=== PATIENT | male | born 1995 | race African-American/Black ===

== ENCOUNTER 2017-01-04 22:22 | Emergency (ER) | payer OTHER ==
[2017-01-04 22:30] VITALS: BP 134/56; PULSE 85; TEMP 97.9; BMI 21.5
[2017-01-04] MEDS ORDERED: IBUPROFEN 600 MG TABLET (FP) PO ONE ×2 (23:19→23:37)
--- NOTE | 2017-01-04 23:29 | PDOC ---
History of Present Illness - General Chief Complaint: Pain Stated Complaint: INJURY Time Seen by Provider: 01/04/17 23:02 History Source: Patient Exam Limitations: No Limitations - History of Present Illness Initial Comments: 01/04/17 23:25 21yo Male patient with no significant past medical history presents to ED c/o left ankle/foot injury sustained while playing basketball. Patient states he rolled his ankle while attempting to grab a rebound. He states he is unable to bear weight. No OTC medication taken. Denies any other complaints. Occurred: reports: this morning Severity: Yes: moderate Lower Extremity Pain Location: left: foot, ankle Method of Injury: Yes: sports injury Modifying Factors: improves with: rest Associated Symptoms: See HPI Lower Ext. Injury Location - Specific Injury Location Ankle: right no evidence of injury, right normal inspection, right normal range of motion, right non-tender, left bone tenderness, left soft tissue tenderness, left limited range of motion, left pain, left swelling Foot: right foot no evidence of injury, right foot normal inspection, right foot normal range of motion, right foot non-tender, left foot soft tissue tenderness, left foot bone tenderness, left foot limited range of motion, left foot pain, left foot swelling Extremity Pain Location - Extremity Pain Location Extremity Pain Locations: left: foot, ankle Past History - Travel Traveled outside of the country in the last 30 days: No Close contact w/someone who was outside of country & ill: No - Past Medical History Allergies/Adverse Reactions: Allergies Allergy/AdvReac Type Severity Reaction Status Date / Time No Known Allergies Allergy Verified 01/04/17 22:27 Home Medications: Ambulatory Orders No Home Medications 0 dose .ROUTE UTDICT 02/07/13 Ibuprofen [Motrin -] 600 mg PO Q6H PRN #20 tablet 01/05/17 Other medical history: Pt denies - Psycho/Social/Smoking Cessation Hx Suicidal Ideation: No Smoking Status: No Smoking History: Never smoked Have you smoked in the past 12 months: No Number of Cigarettes Smoked Daily: 0 Information on smoking cessation initiated: No Hx Alcohol Use: No Drug/Substance Use Hx: No Substance Use Type: None Review of Systems - Review of Systems Able to Perform ROS?: Yes Is the patient limited Setswana proficient: No Musculoskeletal: Yes: Other (Foot swelling and Pain) All Other Systems: Reviewed and Negative *Physical Exam - Vital Signs Last Vital Signs Temp Pulse Resp BP Pulse Ox 97.9 F 85 20 134/56 100 01/04/17 22:27 01/04/17 22:27 01/04/17 22:27 01/04/17 22:27 01/04/17 22:27 - Physical Exam General Appearance: Yes: Nourished, Appropriately Dressed. No: Apparent Distress, Mild Distress, Moderate Distress, Severe Distress Respiratory/Chest: positive: Lungs Clear, Normal Breath Sounds. negative: Chest Tender, Respiratory Distress, Accessory Muscle Use, Labored Respiration, Rapid RR, Stridor, Wheezing Cardiovascular: positive: Regular Rhythm, Regular Rate Musculoskeletal: positive: Normal Inspection. negative: CVA Tenderness, Decreased Range of Motion, Vertebral Tenderness Extremity: positive: Normal Capillary Refill, Normal Inspection, Swelling. negative: Normal Range of Motion (Left foot), Erythema, Inflammation Integumentary: positive: Normal Color, Dry, Warm Neurologic: positive: timber feller II-XII NML intact, Fully Oriented, Alert, Normal Mood/ Affect, Normal Response, Motor Strength 5/5 Procedures - Splinting Splint Location: Left: Foot, Ankle Pre-Proc Neuro Vasc Exam: normal Hand-Made Type: orthoglass Splint Type: Yes: Short Leg (with ankle stirrup) Post-Proc Neuro Vasc Exam: normal Tomás Bandage: 6" Sling: No Complications: No Post splint xray: No Progress: 01/05/17 02:07 Patient tolerated procedure well. ED Treatment Course - RADIOLOGY Radiology Studies Ordered: Category Date Time Status ANKLE & FOOT-LEFT* [RAD] Stat Radiology 01/04/17 23:19 Ordered *DC/Admit/Observation/Transfer Diagnosis at time of Disposition: High ankle sprain of left lower extremity Qualifiers: Encounter type: initial encounter Qualified Code(s): S93.432A - Sprain of tibiofibular ligament of left ankle, initial encounter - Discharge Dispostion Disposition: HOME Condition at time of disposition: Stable Admit: No - Prescriptions Prescriptions: Ibuprofen [Motrin -] 600 mg PO Q6H PRN #20 tablet PRN Reason: Pain - Referrals Referrals: Ed Perez MD [Staff Physician] - - Patient Instructions Printed Discharge Instructions: DI for Ankle Sprain Additional Instructions: Follow up with Dr. Perez (Orthopedic). Call to schedule appointment for further evaluation. Motrin or Tylenol for pain as needed. Elevate foot while resting. Apply cold compress to affected area every 4 hours on and off for 20 mins. Non-weight bearing crutches use. Return if any concerns for further evaluation. Print Language: SOUTH KOREAN
--- NOTE | 2017-01-05 00:41 | PDOC ---
*Physical Exam - Vital Signs Last Vital Signs Temp Pulse Resp BP Pulse Ox 97.9 F 85 20 134/56 100 01/04/17 22:27 01/04/17 22:27 01/04/17 22:27 01/04/17 22:27 01/04/17 22:27 ED Treatment Course - Medications Given in the ED: ED Medications Discontinued Medications Generic Name Dose Route Start Last Admin Trade Name Freq PRN Reason Stop Dose Admin Ibuprofen 600 mg 01/04/17 23:19 01/04/17 23:41 Motrin - PO 01/04/17 23:20 600 mg ONCE ONE Administration Medical Decision Making - Medical Decision Making 01/05/17 00:41 agree with care from [facility] *DC/Admit/Observation/Transfer Diagnosis at time of Disposition: High ankle sprain of left lower extremity - Prescriptions Prescriptions: Ibuprofen [Motrin -] 600 mg PO Q6H PRN #20 tablet PRN Reason: Pain - Referrals Referrals: Ed Perez MD [Staff Physician] - - Patient Instructions Printed Discharge Instructions: DI for Ankle Sprain Additional Instructions: Follow up with Dr. Perez (Orthopedic). Call to schedule appointment for further evaluation. Motrin or Tylenol for pain as needed. Elevate foot while resting. Apply cold compress to affected area every 4 hours on and off for 20 mins. Non-weight bearing crutches use. Return if any concerns for further evaluation. Print Language: GREEK
== END 2017-01-05 02:40 | disposition home or self-care (01) ==
LOC: JER 22:22
PROC: 2W3RX1Z Immobilization of Left Lower Leg using Splint (ICD-10-PCS; principal; 2017-01-04)
DX: S93.432A Sprain of tibiofibular ligament of left ankle, initial encounter (principal); X50.1XXA Overexertion from prolonged static or awkward postures, initial encounter; Y93.67 Activity, basketball; Y92.310 Basketball court as the place of occurrence of the external cause; Y99.8 Other external cause status
CPT/HCPCS: 73610-TC-LT; 73630-TC-LT; 99282-25

== ENCOUNTER 2019-06-04 16:27 | Emergency (ER) | payer OTHER ==
[2019-06-04 16:34] VITALS: BP 105/67; PULSE 82; TEMP 99.2; BMI 18.6
[2019-06-04] MEDS ORDERED: PENICILLIN G BENZATHINE 1,200,000 UNIT/2 ML PFS IM ONE ×2 (17:19→17:23)
[2019-06-04] MEDS ORDERED: DEXAMETHASONE LIQUID 0.5 MG/5 ML PO ONE (17:20)
[2019-06-04] MEDS ORDERED: DEXAMETHASONE SOD PHOSPHATE 10 MG/1 ML VIAL ONE (17:23)
--- NOTE | 2019-06-04 17:25 | PDOC ---
History of Present Illness - General Chief Complaint: Sore Throat Stated Complaint: SORE THROAT Time Seen by Provider: 06/04/19 16:35 History Source: Patient Exam Limitations: No Limitations - History of Present Illness Initial Comments: 06/04/19 17:29 HISTORY OF PRESENT ILLNESS: 69-[id number]-eg[age]-year-old male denies medical history presents emergency department for evaluation of fever, headaches and sore throat over the past 2 days. Patient reports increased difficulty swallowing and noticed his voice is hoarse than usual. Reports he is having difficulty swallowing solid foods but is drinking liquids without difficulty. No recent travel or sick contacts. PAST MEDICAL HISTORY: Denies past medical history SURGICAL HISTORY: Denies ALLERGIES: No known drug allergies REVIEW OF SYSTEMS General/Constitutional: Denies fever or chills. Denies weakness, weight change. HEENT: See HPI Cardiovascular: Denies chest pain or shortness of breath. Respiratory: Denies cough, wheezing, or hemoptysis. Gastrointestinal: Denies nausea, vomiting, diarrhea or constipation. Denies rectal bleeding. Genitourinary: Denies dysuria, frequency, or change in urination. Musculoskeletal: Denies joint or muscle swelling or pain. Denies neck or back pain. Skin and breasts: Denies rash or easy bruising. Neurologic: Denies headache, vertigo, loss of consciousness, or loss of sensation. Psychiatric: Denies depression or anxiety. Endocrine: Denies increased thirst. Denies abnormal weight change. Hematologic/Lymphatic: Denies anemia, easy bleeding, or history of blood clots. Allergic/Immunologic: Denies hives or skin allergy. Denies latex allergy. PHYSICAL EXAM General Appearance: Well-appearing, appropriately dressed. No apparent distress , no intoxication. HEENT: EOMI, PERRLA, normal ENT inspection, normal voice, TMs normal. No conjunctival pallor. No photophobia, scleral icterus. Oropharynx beefy red with 3+ tonsils present bilaterally. Tonsillar exudate is present. Uvula is midline. No trismus noted. Neck: Supple. Trachea midline. No tenderness, rigidity, carotid bruit, stridor , lymphadenopathy, or thyromegaly. Respiratory/Chest: Lungs CTAB. No shortness of breath, chest tenderness, respiratory distress, accessory muscle use. No crackles, rales, rhonchi, stridor , wheezing, dullness Cardiovascular: RRR. S1, S2. No JVD, murmur, bradycardia, tachycardia. Vascular Pulses: Dorsalis-Pedis (R): 2+, Dorsalis-Pedis (L): 2+ Gastrointestinal/Abdominal: Normal bowel sounds. Abdomen soft, non-distended. No tenderness or rebound tenderness. No organomegaly, pulsatile mass, guarding, hernia, hepatomegaly, splenomegaly. Past History - Past Medical History Allergies/Adverse Reactions: Allergies Allergy/AdvReac Type Severity Reaction Status Date / Time No Known Allergies Allergy Verified 06/06/19 14:07 Home Medications: Ambulatory Orders NK [No Known Home Medication] 06/06/19 COPD: No - Psycho Social/Smoking Cessation Hx Smoking Status: No Smoking History: Never smoked Have you smoked in the past 12 months: No Number of Cigarettes Smoked Daily: 0 Hx Alcohol Use: No Drug/Substance Use Hx: No Substance Use Type: None *Physical Exam - Vital Signs Last Vital Signs Temp Pulse Resp BP Pulse Ox 99.2 F 82 18 105/67 99 06/04/19 16:32 06/04/19 16:32 06/04/19 16:32 06/04/19 16:32 06/04/19 16:32 Medical Decision Making - Medical Decision Making 06/04/19 17:27 A/P: 23-year-old male with pharyngitis Given high likelihood of streptococcal infection, I will treat for streptococcal infection. Rapid strep testing sent Bicillin per patient request Discharge home Discharge - Discharge Information Problems reviewed: Yes Clinical Impression/Diagnosis: Pharyngitis Condition: Stable Disposition: HOME - Admission No - Follow up/Referral Referrals: Bob Benjamin MD [Staff Physician] - - Patient Discharge Instructions Additional Instructions: Rest, drink lots of fluids: Teas, water, soups Eat cold things: Ice cream, ice pops, ice chips Saltwater gargles Steamy showers/steam to face break up mucus Replace your toothbrush in 3 days to prevent reinfection. Avoid contact with others until fevers and pain resolved Lots of handwashing and good hygiene, this is contagious You have been treated with Bicillin LA 1.2 million units injection which is a one-time treatment for strep pharyngitis. You will not need to take any further antibiotics. Tylenol or Motrin for fever and pain Followup with private physician in one to 2 days as needed if not improving Return to emergency department for worsened symptoms, fevers, dehydration - Post Discharge Activity
== END 2019-06-04 18:03 | disposition home or self-care (01) ==
LOC: JERFT 16:27
DX: J02.9 Acute pharyngitis, unspecified (principal)
CPT/HCPCS: 87070; 87880; 99281-25

== ENCOUNTER 2019-06-06 14:01 | Emergency (ER) | payer OTHER ==
--- NOTE | 2019-06-06 14:05 | PDOC ---
Rapid Medical Evaluation Time Seen by Provider: 06/06/19 14:05 Medical Evaluation: Allergies Allergy/AdvReac Type Severity Reaction Status Date / Time No Known Allergies Allergy Verified 06/04/19 16:34 06/06/19 14:05 cc: pain in throat HPI: Patient reports treated with injection on Wednesday States a lot of pain especially with swallowing and breathing PE: NAD, speaking with gargle speech HEENT: + ertthematous pharynx with swelling of left hard palate orders: iv access basic labs This patient will proceed to the main emergency department for further evaluation Discharge Disposition - Diagnosis Pharyngitis - Referrals - Patient Instructions - Post Discharge Activity
[2019-06-06 14:07] VITALS: PULSE 88; TEMP 98.9; BMI 19.3
[2019-06-06] MEDS ORDERED: DEXAMETHASONE SOD PHOSPHATE 10 MG/1 ML VIAL IVPUSH ONE (15:51)
[2019-06-06] MEDS ORDERED: SODIUM CHLORIDE 1,000 ML IV STA (15:51)
[2019-06-06] MEDS ORDERED: DEXAMETHASONE SOD PHOSPHATE 10 MG/1 ML VIAL ONE (16:11)
[2019-06-06 16:47] LABS: BASO % 0.1 % (0-2.0); EOS % 0.1 % (0-4.5); HEMATOCRIT 50.7 % (35.4-49); HEMOGLOBIN 16.9 GM/dL (11.7-16.9); LYMPH % 8.3 % (8-40); MCH 30.8 pg (25.7-33.7); MCHC 33.4 g/dl (32.0-35.9); MEAN CELL VOLUME 92.4 fl (80-96); MEAN PLT VOLUME 9.6 fl (7.5-11.1); MONO % 10.3 % (3.8-10.2); NEUT % 81.2 % (42.8-82.8); PLATELET COUNT 213 K/MM3 (134-434); RBC 5.49 M/mm3 (4.00-5.60); WHITE BLOOD COUNT 15.7 K/mm3 (4.0-10.0)
[2019-06-06 17:14] LABS: ALBUMIN 3.6 g/dl (3.4-5.0); BILIRUBIN,TOTAL 0.9 mg/dL (0.2-1); BLOOD UREA NITROGEN 7.3 mg/dL (7-18); CALCIUM 9.6 mg/dL (8.5-10.1); CREATININE 0.8 mg/dL (0.55-1.3); POTASSIUM 4.5 mmol/L (3.5-5.1); TOT PROT 7.4 g/dl (6.4-8.2)
[2019-06-06] MEDS ORDERED: AMPICILLIN NA/SULBACTAM NA 3 GM in SODIUM CHLORIDE 100 ML IVPB ONE (17:16)
--- NOTE | 2019-06-06 17:36 | PDOC ---
History of Present Illness - General Chief Complaint: Sore Throat Stated Complaint: SORE THROAT Time Seen by Provider: 06/06/19 14:05 History Source: Patient Exam Limitations: No Limitations - History of Present Illness Initial Comments: 06/06/19 16:37 23-year-old male presents to ED with complaints of difficulty swallowing speaking the past few days. Patient states was seen here 2 days ago and was given Decadron along with penicillin injection but states symptoms continue. Patient denies headache, fever or decreased liquid intake but states decreased solid intake due to difficulty swallowing Is this a multiple visit Asthma Patient?: No Timing/Duration: getting worse Severity: moderate Associated Symptoms: reports: other Past History - Travel Traveled outside of the country in the last 30 days: No Close contact w/someone who was outside of country & ill: No - Past Medical History Allergies/Adverse Reactions: Allergies Allergy/AdvReac Type Severity Reaction Status Date / Time No Known Allergies Allergy Verified 06/06/19 14:07 Home Medications: Ambulatory Orders NK [No Known Home Medication] 06/06/19 COPD: No - Psycho Social/Smoking Cessation Hx Smoking Status: No Smoking History: Never smoked Have you smoked in the past 12 months: No Number of Cigarettes Smoked Daily: 0 Hx Alcohol Use: No Drug/Substance Use Hx: No Substance Use Type: None Patient Lives Alone: No Lives with/in: parents Review of Systems - Review of Systems Able to Perform ROS?: No Is the patient limited Hebrew proficient: No Constitutional: No: Symptoms Reported HEENTM: Yes: Throat Pain, Throat Swelling, Difficulty Swallowing Respiratory: No: Symptoms reported Cardiac (ROS): No: Symptoms Reported ABD/GI: No: Symptoms Reported : No: Symptoms Reported Musculoskeletal: No: Symptoms Reported Integumentary: No: Symptoms Reported Neurological: No: Symptoms reported Hematologic/Lymphatic: No: Symptoms Reported *Physical Exam - Vital Signs Last Vital Signs Temp Pulse Resp BP Pulse Ox 98.9 F 88 18 117/78 99 06/06/19 14:04 06/06/19 14:04 06/06/19 14:04 06/06/19 14:04 06/06/19 14:04 - Physical Exam General Appearance: Yes: Nourished, Appropriately Dressed. No: Apparent Distress HEENT: positive: EOMI, ERICA, TMs Normal. negative: Pharynx Normal (Noted red beefy soft palate with 3-4+ bilateral exudative tonsils. Uvula midline) Neck: positive: Supple, Lymphadenopathy (L) (Upper cervical). negative: Lymphadenopathy (R) Respiratory/Chest: positive: Lungs Clear, Normal Breath Sounds. negative: Respiratory Distress, Accessory Muscle Use Cardiovascular: positive: Regular Rhythm, Regular Rate. negative: Murmur Gastrointestinal/Abdominal: positive: Soft. negative: Tenderness Extremity: positive: Normal Capillary Refill Integumentary: positive: Normal Color, Warm, Moist Neurologic: positive: Motor Strength 5/5 (Ambulatory) ED Treatment Course - LABORATORY CBC & Chemistry Diagram: 06/06/19 16:10 06/06/19 15:55 - ADDITIONAL ORDERS Additional order review: Laboratory Results 06/06/19 15:55 Sodium 138 Potassium 4.5 Chloride 102 Carbon Dioxide 30 Anion Gap 5 L BUN 7.3 Creatinine 0.8 Est GFR (CKD-EPI)AfAm 148.00 Est GFR (CKD-EPI)NonAf 127.70 Random Glucose 84 Calcium 9.6 Total Bilirubin 0.9 AST 16 ALT 20 Alkaline Phosphatase 83 Total Protein 7.4 Albumin 3.6 06/06/19 16:10 RBC 5.49 MCV 92.4 MCHC 33.4 RDW 14.0 MPV 9.6 Neutrophils % 81.2 Lymphocytes % 8.3 Monocytes % 10.3 H Eosinophils % 0.1 Basophils % 0.1 - RADIOLOGY Radiology Studies Ordered: Category Date Time Status SOFT TISSUE NECK CT WITH CONTR [CT] Stat CT Scan 06/06/19 16:54 Ordered - Medications Given in the ED: ED Medications Discontinued Medications Generic Name Dose Route Start Last Admin Trade Name Freq PRN Reason Stop Dose Admin Dexamethasone Sodium Phosphate 10 mg 06/06/19 15:51 06/06/19 16:14 Decadron Injection - IVPUSH 06/06/19 15:52 10 mg ONCE ONE Administration Sodium Chloride 1,000 mls @ 1,000 mls/hr 06/06/19 15:51 06/06/19 16:14 Normal Saline - IV 06/06/19 16:50 1,000 mls/hr ASDIR STA Administration Medical Decision Making - Medical Decision Making 06/06/19 17:02 Chief complaint: Worsening sore throat causing him difficulty tolerating solids patient given Bicillin and Decadron here 2 days ago exam garbled voice no drooling vital signs stable noted erythematous exudative 3-4+ tonsils bilaterally Plan: IV fluids, labs IV Decadron and soft tissue of neck CT with contrast. Will order antibiotics 06/06/19 17:53 Laboratory Tests 06/06/19 06/06/19 15:55 16:10 WBC 15.7 H Hgb 16.9 Hct 50.7 H Absolute Neuts (auto) 12.7 H Monocytes % 10.3 H Sodium 138 Potassium 4.5 Chloride 102 Carbon Dioxide 30 Anion Gap 5 L BUN 7.3 Creatinine 0.8 Est GFR (CKD-EPI)AfAm 148.00 Est GFR (CKD-EPI)NonAf 127.70 Random Glucose 84 Calcium 9.6 Total Bilirubin 0.9 AST 16 ALT 20 Total Protein 7.4 Albumin 3.6 monoscreen added , unasyn ordered, pt at CT 06/06/19 18:41 Tolerating ice chips. Unasyn hanging. CT results pending Discharge - Discharge Information Problems reviewed: Yes Clinical Impression/Diagnosis: Peritonsillar abscess Disposition: TRANSFER ACUTE CARE/OTHER HOSP - Follow up/Referral - Patient Discharge Instructions - Post Discharge Activity
--- NOTE | 2019-06-06 20:03 | PDOC ---
*Physical Exam - Vital Signs Last Vital Signs Temp Pulse Resp BP Pulse Ox 98.9 F 88 18 117/78 99 06/06/19 14:04 06/06/19 14:04 06/06/19 14:04 06/06/19 14:04 06/06/19 14:04 - Physical Exam General Appearance: Yes: Appropriately Dressed HEENT: positive: Tonsillar Exudate, Tonsillar Erythema Respiratory/Chest: positive: Lungs Clear, Normal Breath Sounds ED Treatment Course - LABORATORY CBC & Chemistry Diagram: 06/06/19 16:10 06/06/19 15:55 - ADDITIONAL ORDERS Additional order review: Laboratory Results 06/06/19 15:55 Sodium 138 Potassium 4.5 Chloride 102 Carbon Dioxide 30 Anion Gap 5 L BUN 7.3 Creatinine 0.8 Est GFR (CKD-EPI)AfAm 148.00 Est GFR (CKD-EPI)NonAf 127.70 Random Glucose 84 Calcium 9.6 Total Bilirubin 0.9 AST 16 ALT 20 Alkaline Phosphatase 83 Total Protein 7.4 Albumin 3.6 06/06/19 16:10 RBC 5.49 MCV 92.4 MCHC 33.4 RDW 14.0 MPV 9.6 Neutrophils % 81.2 Lymphocytes % 8.3 Monocytes % 10.3 H Eosinophils % 0.1 Basophils % 0.1 - Medications Given in the ED: ED Medications Discontinued Medications Generic Name Dose Route Start Last Admin Trade Name Freq PRN Reason Stop Dose Admin Dexamethasone Sodium Phosphate 10 mg 06/06/19 15:51 06/06/19 16:14 Decadron Injection - IVPUSH 06/06/19 15:52 10 mg ONCE ONE Administration Sodium Chloride 1,000 mls @ 1,000 mls/hr 06/06/19 15:51 06/06/19 16:14 Normal Saline - IV 06/06/19 16:50 1,000 mls/hr ASDIR STA Administration Ampicillin Sodium/Sulbactam 100 mls @ 200 mls/hr 06/06/19 17:16 06/06/19 18: 51 Sodium 3 gm/ Sodium Chloride IVPB 06/06/19 17:45 200 mls/hr ONCE ONE Administration Medical Decision Making - Medical Decision Making 06/06/19 20:39 CT neck., has large tonisillar/ peritonsillar abscess. uvula edema noted. i called [facility] as patient prefers to be transferred to the [facility]. Patient accepted tp transfer to the ED for evaluation by ENT. patient accepted by Dr. Colon 06/06/19 20:40 Discharge - Discharge Information Problems reviewed: Yes Clinical Impression/Diagnosis: Peritonsillar abscess Disposition: TRANSFER ACUTE CARE/OTHER HOSP - Follow up/Referral - Patient Discharge Instructions - Post Discharge Activity
[2019-06-06] MEDS ORDERED: SODIUM CHLORIDE 0.9% 500 ML INFUS.BAG IV ONE (20:24)
[2019-06-06 22:00] VITALS: BP 121/87
== END 2019-06-06 21:59 | disposition short-term general hospital (02) ==
LOC: JER 14:01
PROC: 3E03329 Introduction of Other Anti-infective into Peripheral Vein, Percutaneous Approach (ICD-10-PCS; principal; 2019-06-06)
PROC: 3E0333Z Introduction of Anti-inflammatory into Peripheral Vein, Percutaneous Approach (ICD-10-PCS; 2019-06-06)
DX: J36 Peritonsillar abscess (principal)
CPT/HCPCS: 36415; 70491-TC; 80053; 85025; 99285-25; J1100; J7030; Q9967